=== PATIENT | male | born 1965 | race Caucasian/White ===

== ENCOUNTER 2018-01-20 06:26 | Day surgery (SDC) | payer BC ==
[~2018-01-20 06:26] MED LIST: CEFAZOLIN 2 GM/50 ML (PMX) 50 ML IVPB
[2018-01-20] MEDS ORDERED: morphine (1 MG/ML) 10ML SYRINGE IV ×3 (06:30)
[2018-01-20] MEDS ORDERED: DIPHENHYDRAMINE 50 MG INJ IV (06:30)
[2018-01-20] MEDS ORDERED: ONDANSETRON 4 MG INJ IV (06:30)
[2018-01-20] MEDS ORDERED: HYDROmorphONE (0.2 MG/ML) 10ML SYG IV ×2 (06:30)
[2018-01-20] MEDS ORDERED: MIDAZOLAM 1 MG/ML 2 ML INJ IV (06:30)
[2018-01-20] MEDS ORDERED: ATROPINE 1 MG/10 ML SYRINGE IV (06:30)
[2018-01-20] MEDS ORDERED: EPHEDrine SULFATE 50 MG/5 ML SYG IV (06:30)
[2018-01-20] MEDS ORDERED: OXYCODONE/ACETAMINOPHEN (5/325) TAB PO ×2 (06:30)
[2018-01-20] MEDS ORDERED: MEPERIDINE 25 MG INJ IV (06:30)
[2018-01-20] MEDS ORDERED: hydrALAzine 20 MG INJ IV (06:30)
[2018-01-20] MEDS ORDERED: FENTAnyl 50 MCG/ML VIAL IV ×2 (06:30)
[2018-01-20] MEDS ORDERED: LABETALOL HCL 20MG INJ IV (06:30)
[2018-01-20] MEDS ORDERED: NEOSTIGMINE 3 MG/3 ML SYRINGE (06:33)
[2018-01-20] MEDS ORDERED: PROPOFOL 20 ML (06:33)
[2018-01-20] MEDS ORDERED: LIDOCAINE 2% (SDV) 5 ML INJ (06:33)
[2018-01-20] MEDS ORDERED: GLYCOPYRROLATE 0.4 MG INJ (06:33)
[2018-01-20] MEDS ORDERED: ROCURONIUM 50 MG INJ (06:33)
[2018-01-20] MEDS ORDERED: ONDANSETRON 4 MG INJ (06:34)
[2018-01-20] MEDS ORDERED: FENTAnyl 50 MCG/ML VIAL (06:34)
[2018-01-20] MEDS ORDERED: DEXAMETHASONE 4 MG/ML 1 ML INJ (06:34)
[2018-01-20] MEDS ORDERED: MIDAZOLAM 1 MG/ML 2 ML INJ (06:34)
[2018-01-20] MEDS ORDERED: SUCCINYLCHOLINE CHLORIDE 100 MG/5 ML SYG IV (06:39)
[2018-01-20] MEDS ORDERED: CEFAZOLIN 1 GM INJ (07:00)
[2018-01-20 07:02] LABS: ADD MAN DIFF? NO
[2018-01-20 07:08] LABS: BASOPHILS % 0.7 % (0.0-2.0); EOSINOPHILS # 0.4 10^3/ul (0.0-0.5); EOSINOPHILS % 6.5 % (0.0-7.0); HEMATOCRIT 39.4 % (42.0-52.0); HEMOGLOBIN 13.5 g/dl (14.0-18.0); LYMPHOCYTES # 1.7 10^3/ul (0.8-2.9); MEAN CORPUSCULAR HEMOGLOBIN 31.7 pg (29.0-33.0); MEAN CORPUSCULAR HGB CONC 34.3 g/dl (32.0-37.0); MEAN CORPUSCULAR VOLUME 92.5 fl (82.0-101.0); MEAN PLATELET VOLUME 10.8 fl (7.4-10.4); MONOCYTE # 0.4 10^3/ul (0.3-0.9); MONOCYTES % 7.3 % (0.0-11.0); NEUTROPHIL # 3.2 10^3/ul (1.6-7.5); NEUTROPHILS % 55.2 % (39.0-77.0); PLATELET COUNT 208 10^3/UL (140-415); RED BLOOD COUNT 4.26 10^6/ul (4.70-6.10); RED CELL DISTRIBUTION WIDTH 12.1 % (11.5-14.5)
[2018-01-20 07:08] LABS: WHITE BLOOD COUNT 5.7 10^3/ul (4.8-10.8)
[2018-01-20 07:29] LABS: ADD UMIC YES; UR ASCORBIC ACID NEGATIVE (NEGATIVE); UR BILIRUBIN (Dip) NEGATIVE (NEGATIVE); UR BLOOD (Dip) 1+ mg/dL (NEGATIVE); UR CLARITY CLEAR (CLEAR); UR COLOR YELLOW (YELLOW); UR GLUCOSE (Dip) NEGATIVE (NEGATIVE); UR KETONES (Dip) NEGATIVE (NEGATIVE); UR LEUKOCYTE ESTERASE (Dip) NEGATIVE Leu/ul (NEGATIVE); UR MUCUS FEW /HPF (NONE SEEN); UR NITRITE (Dip) NEGATIVE (NEGATIVE); UR RBC 0 /HPF (0-5); UR SPECIFIC GRAVITY (Dip) 1.013 (1.003-1.030); UR TOTAL PROTEIN (Dip) NEGATIVE (NEGATIVE); UR UROBILINOGEN (Dip) NEGATIVE (NEGATIVE); UR WBC 0 /HPF (0-5)
[2018-01-20 07:33] LABS: INR 0.85; PROTIME 11.7 Sec (11.9-14.9); PT RATIO 0.9
[2018-01-20 07:34] LABS: PARTIAL THROMBOPLASTIN TIME 26.3 Sec (25.0-35.0)
[2018-01-20 07:37] LABS: CARBON DIOXIDE 29 mmol/L (21-31); CHLORIDE 106 mmol/L (97-110); GLUCOSE 113 mg/dl (70-220)
[2018-01-20 07:39] LABS: BLOOD UREA NITROGEN 17 mg/dl (7-20); CALCIUM 9.7 mg/dl (8.4-10.2); SODIUM 146 mmol/L (135-144)
[2018-01-20 08:01] LABS: ANION GAP 15 (8-16)
[2018-01-20] MEDS: BUPIVACAINE 0.25% (MPF) 30 ML INJ (08:35)
[2018-01-20] MEDS: HYDROmorphONE (0.2 MG/ML) 10ML SYG IV (09:10)
== END 2018-01-20 10:56 | disposition home or self-care (01) ==
LOC: SDS 06:26
DX: N43.3 Hydrocele, unspecified (principal); E78.5 Hyperlipidemia, unspecified
CPT/HCPCS: 55040; 80048; 81001; 85025; 85610; 85730; 88304